=== PATIENT | female | born 1950 | race Caucasian/White ===

== ENCOUNTER 2017-05-09 14:54 | Emergency (ER) | payer SELFPAY ==
--- NOTE | 2017-05-09 15:25 | NUR ---
PATIENT LEFT WITHOUT BEING SEEN BY DR. NELSON. NO FURTHER CARE PROVIDED FOR PATIENT.
== END 2017-05-09 15:25 | disposition left against medical advice (07) ==
LOC: MED 14:54
DX: M79.606 Pain in leg, unspecified (principal); Z53.21 Procedure and treatment not carried out due to patient leaving prior to being seen by health care provider